=== PATIENT | male | born 1985 | race Caucasian/White ===

== ENCOUNTER 2021-02-03 12:01 | Emergency (ER) | payer OTHER ==
[2021-02-03] MEDS ORDERED: ZITHROMAX250 MG PO (15:59)
== END 2021-02-03 16:23 | disposition home or self-care (01) ==
LOC: ER1 12:01
DX: U07.1 COVID-19 (principal); J12.82 Pneumonia due to coronavirus disease 2019; Z90.89 Acquired absence of other organs
CPT/HCPCS: 71045; 99283